=== PATIENT | male | born 1975 | race Two or more races ===

== ENCOUNTER 2024-08-17 21:33 | Emergency (ER) | payer OTHER, MEDICAID ==
[~2024-08-17] VITALS: Ht 180.3 cm; Wt 72.6 kg
[2024-08-17 21:43] VITALS: BP 149/77; TEMP 98.4; O2SAT 99
[2024-08-17] MEDS ORDERED: IBUP-1957 PO (22:16)
[2024-08-17] MEDS ORDERED: CYCL5TAB PO (22:16)
== END 2024-08-17 22:24 | disposition home or self-care (01) ==
LOC: ER 21:38
DX: S39.012A Strain of muscle, fascia and tendon of lower back, initial encounter (principal); Z79.1 Long term (current) use of non-steroidal anti-inflammatories (NSAID); V43.62XA Car passenger injured in collision with other type car in traffic accident, initial encounter; Y93.89 Activity, other specified; Y92.410 Unspecified street and highway as the place of occurrence of the external cause; Y99.8 Other external cause status

== ENCOUNTER 2025-01-15 14:12 | Emergency (ER) | payer MEDICAID ==
[~2025-01-15] VITALS: Ht 175.3 cm; Wt 90.7 kg
[~2025-01-15 14:12] MED LIST: CYCL5TAB PO; IBUP-1957 PO
[2025-01-15 14:58] LABS: PLATELET COUNT (AUTO) 210 K/uL (150-450); RED BLOOD CELL COUNT(AUTO) 4.66 MIL/uL (4.5-6.0); RED CELL DISTRIBUTION WIDTH 13.4 % (11.5-15.0); WHITE BLOOD COUNT (AUTO) 9.9 K/uL (4.3-11.0)
[2025-01-15 15:05] LABS: CALCIUM, SERUM 9.0 mg/dL (8.5-10.1); CREATININE 0.8 mg/dL (0.6-1.3); SODIUM SERUM 138 mmol/L (136-145); UREA NITROGEN, BLOOD 15 mg/dL (7-18)
[2025-01-15] MEDS ORDERED: MORPHINE SULFATE INJ 4 MG/ML DISP.SYRIN ONE (15:43)
[2025-01-15] MEDS ORDERED: ONDANSETRON HCL/PF 4 MG/2 ML VIAL ONE (15:43)
[2025-01-15] MEDS ORDERED: ASPIRIN 325 MG TABLET ONE (15:44)
[2025-01-15] MEDS: ASPIRIN 325 MG TABLET PO ONE (15:51)
[2025-01-15] MEDS: MORPHINE SULFATE INJ 2 MG/ML DISP.SYRIN IV ONE (15:52)
[2025-01-15] MEDS: ONDANSETRON HCL/PF 4 MG/2 ML VIAL IVP ONE (15:52)
[2025-01-15] MEDS ORDERED: PANT20TA2 PO (17:57)
[2025-01-15] MEDS ORDERED: ASPI-1420 PO (17:57)
[2025-01-15 18:32] VITALS: BP 130/67; TEMP 97.8; O2SAT 98
== END 2025-01-15 18:32 | disposition home or self-care (01) ==
LOC: ER 14:16
DX: R07.9 Chest pain, unspecified (principal); R06.02 Shortness of breath; M79.602 Pain in left arm; I10 Essential (primary) hypertension; I31.9 Disease of pericardium, unspecified; Z79.1 Long term (current) use of non-steroidal anti-inflammatories (NSAID)
CPT/HCPCS: 36415; 71045-TC; 80048-TC; 84484-TC; 85025-TC; J2270; J2405